=== PATIENT | female | born 1945 | race Asian ===

== ENCOUNTER 2017-12-19 16:52 | Emergency (ER) | payer MEDICARE, OTHER ==
[~2017-12-19] VITALS: Ht 152.4 cm; Wt 61.2 kg
[~2017-12-19 16:52] MED LIST: ACETAMINOPHEN325 M1 PO; AMLODIPINE BESY10 MG PO; ASPIR 8181 MG; ATENOLOL50 MG PO; CALCIUM600 MG; CATAPRES-TTS 31 EA TD; DIOVAN160 MG PO; GLIMEPIRIDE1 MG; IRON18 MG PO; MULTI-DAY VITA1 EACH; OMEGA 3 1,0001 EACH; PRAVASTATIN SOD40 MG; SENNA8.6 M1; [UNRECOGNIZED DRUG - OTHER] PO
[2017-12-19] MEDS ORDERED: ACETAMINOPHEN 325 MG TAB PO ONE (17:30)
--- NOTE | 2017-12-19 18:30 | Diagnostic Imaging Report ---
EXAMINATION: Left Hip Films CLINICAL HISTORY:Hip pain COMPARISON: None. DISCUSSION: Mild osteopenia. No acute, displaced fractures or dislocations. Hip joint is well-preserved. 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 No osteolytic or osteoblastic lesions. Pelvic phleboliths. Nonobstructive bowel gas pattern. Soft tissues are unremarkable. IMPRESSION: 1. No acute abnormalities. Signed by: Dr. Brian Castillo M.D. on 12/19/2017 6:27 PM
[2017-12-19 18:55] VITALS: BP 140/80
== END 2017-12-19 18:56 | disposition home or self-care (01) ==
LOC: FSED 16:52
DX: M79.605 Pain in left leg (principal); I10 Essential (primary) hypertension; E11.9 Type 2 diabetes mellitus without complications; I25.2 Old myocardial infarction
CPT/HCPCS: 99283

== ENCOUNTER 2021-03-23 13:55 | Emergency (ER) | payer MEDICARE, OTHER ==
[~2021-03-23] VITALS: Ht 152.4 cm; Wt 59.9 kg
[2021-03-23] MEDS ORDERED: CASIRIVIMAB/IMDEVIMAB 10 ML in SODIUM CHLORIDE 0.9% 100 ML IV ONE (14:30)
[2021-03-23] MEDS ORDERED: TESSALON PERLE100 MG PO (14:34)
[2021-03-23] MEDS ORDERED: AFRIN15 ML INH (14:34)
[2021-03-23] MEDS ORDERED: SODIUM CHLORIDE 0.9% 100 ML ONE (14:52)
[2021-03-23 15:33] VITALS: BP 147/75
== END 2021-03-23 15:53 | disposition home or self-care (01) ==
LOC: FSED 14:00
DX: U07.1 COVID-19 (principal); R05.9 Cough, unspecified; I10 Essential (primary) hypertension; E11.9 Type 2 diabetes mellitus without complications; E78.5 Hyperlipidemia, unspecified; N18.9 Chronic kidney disease, unspecified; Z85.3 Personal history of malignant neoplasm of breast; I25.2 Old myocardial infarction
CPT/HCPCS: 71045; 99283; J7050